=== PATIENT | male | born 1975 | race Caucasian/White ===

== ENCOUNTER 2021-04-29 23:28 | Emergency (ER) | payer OTHER, SELFPAY ==
[2021-04-30] MEDS ORDERED: Ketorolac Tromethamine 30 MG/ML VIAL ONE (00:07)
== END 2021-04-30 01:50 | disposition home or self-care (01) ==
LOC: ERS 23:28
DX: S20.212A Contusion of left front wall of thorax, initial encounter (principal); E11.9 Type 2 diabetes mellitus without complications; F17.210 Nicotine dependence, cigarettes, uncomplicated; W22.8XXA Striking against or struck by other objects, initial encounter; Y92.89 Other specified places as the place of occurrence of the external cause; Z79.4 Long term (current) use of insulin; Z89.512 Acquired absence of left leg below knee; Z89.421 Acquired absence of other right toe(s)
CPT/HCPCS: 71250; 96372; J1885